=== PATIENT | female | born 1955 | race African-American/Black ===

== ENCOUNTER 2016-12-13 17:16 | Emergency (ER) | payer BC ==
[~2016-12-13] VITALS: Ht 157.5 cm; Wt 68.8 kg
[2016-12-13 17:57] VITALS: BP 147/77
== END 2016-12-13 18:07 | disposition home or self-care (01) ==
LOC: EME 17:16
DX: S01.312A Laceration without foreign body of left ear, initial encounter (principal); X58.XXXA Exposure to other specified factors, initial encounter; E78.5 Hyperlipidemia, unspecified
CPT/HCPCS: 99281; 99283

== ENCOUNTER → 2016-12-13 | Outpatient (CLI) | payer OTHER ==
[~2016-12-13] VITALS: Ht 157.5 cm; Wt 68.0 kg
[~2016-12-13] MED LIST: ADULT LOW DOSE81 M1 PO; ALPHAGAN P100 DROP/5 BOTH EYES; ASPIRIN325 MG PO; ASPIRIN81 M2 PO; BELVIQ10 MG PO; DOMP10T PO; DORZOLAMIDE-TIM10 ML BOTH EYES; HYDROCHLOROTH12.5 M3 PO; IBUPROFEN400 MG PO; IBUPROFEN600 MG PO; K-DUR10 MEQ PO; KLOR-CON M1010 MEQ PO; LATANOPROST2.5 ML BOTH EYES; LEVOTHYROXINE50 MCG PO; MEDROXYPROGESTE10 MG PO; MOTRIN600 MG PO; NEXIUM40 MG PO; PANTOPRAZOLE SO40 MG PO; PRAVACHOL40 MG PO; PRAVASTATIN SOD20 MG PO; PREMARIN VAGI42.5 GM TP; PRILOSEC20 MG PO; PROTONIX40 MG PO; TOPROL XL50 MG PO; TRAMADOL HCL50 MG PO; ULTRACET1 TABLET PO; XALATAN2.5 ML BOTH EYES
[2016-12-13 10:09] LABS: ANION GAP 9 MEQ/L (2-14); CHLORIDE 103 MEQ/L (99-109); GFR ESTIMATE (CALCULATED) > 59 mL/min/; GLUCOSE 110 mg/dL (70-99); POTASSIUM 3.7 MEQ/L (3.7-5.4); SAMPLE HEMOLYSIS CHECK 0; SAMPLE ICTERIC CHECK 0; SAMPLE LIPEMIA CHECK 0; SODIUM 139 MEQ/L (136-147); UREA NITROGEN (BUN) 10 mg/dL (9-23)
== END | disposition home or self-care (01) ==
LOC: AMB 11-14 13:30
PROVIDERS: Internal Medicine Gastroenterology
DX: R13.10 Dysphagia, unspecified (principal); K31.7 Polyp of stomach and duodenum; K29.70 Gastritis, unspecified, without bleeding; K44.9 Diaphragmatic hernia without obstruction or gangrene; K21.9 Gastro-esophageal reflux disease without esophagitis; E06.3 Autoimmune thyroiditis; I10 Essential (primary) hypertension; E78.6 Lipoprotein deficiency; E66.3 Overweight; Z68.27 Body mass index [BMI] 27.0-27.9, adult; G47.33 Obstructive sleep apnea (adult) (pediatric); I47.2 Ventricular tachycardia; Z80.3 Family history of malignant neoplasm of breast; Z83.3 Family history of diabetes mellitus; Z82.49 Family history of ischemic heart disease and other diseases of the circulatory system; Z83.511 Family history of glaucoma
CPT/HCPCS: 80048; 88305; 88342 TC; 93005